=== PATIENT | male | born 1970 | race Caucasian/White ===

== ENCOUNTER 2018-02-16 14:50 | Emergency (ER) | payer OTHER ==
[~2018-02-16] VITALS: Ht 182.9 cm; Wt 117.9 kg
[2018-02-16 14:55] VITALS: BP 148/94
--- NOTE | 2018-02-16 15:05 | NUR ---
PT AMBULATES TO BED 7
--- NOTE | 2018-02-16 15:17 | NUR ---
bib self with c/o constant bl lower back radiating to bl legs x 4 days. Patient denies any recent injury or falls. hx--dm, htn rx--Thalitone 50mg qday Januvia 50mg qday, Amlodipine 10mg qday, Metformin 1000mg bid, Benazepril 40mg qday
--- NOTE | 2018-02-16 16:17 | NUR ---
PATIENT LEFT WITHOUT BEING SEEN BY DR. CARRASQUILLO. NO FURTHER CARE PROVIDED FOR PATIENT.
== END 2018-02-16 16:17 | disposition left against medical advice (07) ==
LOC: MED 14:50
DX: M54.9 Dorsalgia, unspecified (principal); Z53.21 Procedure and treatment not carried out due to patient leaving prior to being seen by health care provider